=== PATIENT | male | born 1950 | race Caucasian/White ===

== ENCOUNTER 2019-01-06 09:57 | Inpatient (IN) | payer MEDICARE, OTHER ==
[~2019-01-06] VITALS: Ht 165.1 cm; Wt 82.3 kg
--- NOTE | 2019-01-06 10:10 | NUR ---
PRECIOUS LEGER IS A FRIEN OF PT
[2019-01-06] MEDS ORDERED: normal saline 1000ml 1,000 ML IV ONE (10:16)
[2019-01-06 10:27] LABS: BASOPHILS # (AUTO) 0.1 X10'3 (0-0.2); BASOPHILS % (AUTO) 1.3 % (0-1); EOSINOPHILS # (AUTO) 0.3 X10'3 (0-0.9); EOSINOPHILS % (AUTO) 3.3 % (0-6); HEMATOCRIT 40.8 % (42.0-52.0); HEMOGLOBIN 14.5 g/dl (14.0-17.9); LYMPHOCYTES # (AUTO) 1.9 X10'3 (1.1-4.8); LYMPHOCYTES % (AUTO) 22.9 % (21-51); MEAN CORPUSCULAR HEMOGLOBIN 31.5 PG (27.0-31.0); MEAN CORPUSCULAR HGB CONC 35.6 g/dL (33.0-36.5); MEAN CORPUSCULAR VOLUME 88.4 FL (78-98); MEAN PLATELET VOLUME 5.9 FL (7.4-10.4); MONOCYTES # (AUTO) 0.6 X10'3 (0-0.9); MONOCYTES % (AUTO) 7.6 % (2-12); NEUTROPHILS # (AUTO) 5.4 X10'3 (1.8-7.7); NEUTROPHILS % (AUTO) 64.9 % (42-75); PLATELET COUNT 515 X10'3 (140-440); RED BLOOD COUNT 4.62 X10'6 (4.70-6.10); WHITE BLOOD COUNT 8.3 X10'3 (4.5-11.0)
[2019-01-06 10:45] LABS: ALANINE AMINOTRANSFERASE 18 U/L (12-78); ALBUMIN 3.1 G/DL (3.4-5.0); ALBUMIN/GLOBULIN RATIO 0.9 (1.1-1.5); ALKALINE PHOSPHATASE 49 IU/L (46-116); ANION GAP 14 (8-16); ASPARTATE AMINO TRANSFERASE 18 U/L (10-37); BLOOD UREA NITROGEN 17 MG/DL (7-18); BUN/CREATININE RATIO 9.2 (5.4-32.0); CALCIUM 9.1 MG/DL (8.5-10.1); CHLORIDE 97 MMOL/L (99-107); CREATININE 1.84 MG/DL (0.60-1.10); GLUCOSE 112 MG/DL (70-104); POTASSIUM 3.5 MMOL/L (3.5-5.1); SODIUM 135 MMOL/L (135-145); TOTAL CARBON DIOXIDE 24.3 MMOL/L (24-32); TOTAL PROTEIN 6.6 G/DL (6.4-8.2); eGFR 37 ML/MIN
[2019-01-06] MEDS ORDERED: metoclopramide 5 mg/ml inj IV ONE (11:10)
--- NOTE | 2019-01-06 11:13 | NUR ---
[facility] [id number] FAX [phone] HX OF MELAN[place]
--- NOTE | 2019-01-06 12:59 | NUR ---
Christina klein in EDM - 01/06/19 at 1301 by GIO Pt's IV discontinued in preparation for discharge. Primary nurse stated the patient is possibly going to be admitted. Stopped with the discharge process for clarification of discharge versus admission.
--- NOTE | 2019-01-06 13:02 | NUR ---
Pt's IV discontinued in preparation for discharge. Primary nurse stated the patient is possibly going to be admitted. Stopped with the discharge process for clarification of discharge versus admission.
[2019-01-06 14:18] LABS: C DIFF ANTIGEN SEE COMMENTS (NEGATIVE); C DIFF SPECIMEN=DIARRHEA? ACCEPTABLE; C DIFFICILE TOXINS A&B NEGATIVE (Neg)
[2019-01-06] MEDS ORDERED: HYDROCORTISONE 5 MG PO (14:29)
[2019-01-06] MEDS ORDERED: LEVO25TA7 PO (14:29)
[2019-01-06] MEDS ORDERED: [UNRECOGNIZED DRUG - OTHER] PO (14:33)
[2019-01-06] MEDS ORDERED: morphine 2 MG/ML inj. syringe IV PRN ×2 (14:55)
[2019-01-06] MEDS ORDERED: magnesium hydroxide 30ml (MOM) UD suspension PO PRN (14:55)
[2019-01-06] MEDS ORDERED: ondansetron/PF 4mg/2ml inj IV PRN (14:55)
[2019-01-06] MEDS ORDERED: HYDROcodone/acetaminophen 5mg/325mg tablet PO PRN (14:55)
[2019-01-06] MEDS ORDERED: acetaminophen 325mg tablet PO PRN ×2 (14:55)
[2019-01-06] MEDS ORDERED: mag hydrox/Alum hydrox/simeth 30ml oral suspension PO PRN (14:55)
[2019-01-06 15:21] LABS: C DIFF TOXIN (LAMP) POSITIVE (NEG)
[2019-01-06] MEDS: normal saline 1000ml 1,000 ML IV SCH ×2 (16:19→23:59)
--- NOTE | 2019-01-06 18:54 | NUR ---
Pt is being transported to the floor, floor nursing staff notified of the patient's belongings with him.
--- NOTE | 2019-01-06 19:13 | NUR ---
oriented to room 4007. call light in reach. skin check complete. belongings updated. eating dinner from leftover warm tray. educated that need a UA. urinal in reach and pt will use call light when finished
[2019-01-06 19:30] VITALS: BP 92/56
[2019-01-06] MEDS: vancomycin 125mg/5ml ORAL solution 5ml UD bottle PO SCH (20:43)
[2019-01-06 21:06] LABS: CLARITY,URINE SLIGHTLY CLOUDY (Clear); COLOR,URINE YELLOW (Yellow); GLUCOSE, URINE NEGATIVE (Neg); KETONES,URINE 40 mg/dl (Neg); LEUKOCYTE ESTERASE ,URINE NEGATIVE (Neg); NITRITES, URINE NEGATIVE (Neg); OCCULT BLOOD,URINE NEGATIVE (Neg); PH,URINE 5.5 (4.8-8.0); PROTEIN,URINE 30 mg/dl (Neg); UROBILINOGEN,URINE 0.2 E.U/dL (0.2-1.0)
[2019-01-06 21:08] LABS: UA COLLECTION TYPE VOIDED
[2019-01-06 21:13] LABS: RBC,URINE NONE SEEN /HPF (0-2); WBC,URINE 0-4 /HPF (0-4)
[2019-01-06 21:14] LABS: BACTERIA,URINE 1+ /HPF (Neg); MUCUS STRANDS MANY /LPF (Neg); SQUAMOUS EPITHELIAL CELL,UR FEW /LPF (FEW)
[2019-01-06 22:00] VITALS: BP 107/56
[2019-01-07] MEDS: vancomycin 125mg/5ml ORAL solution 5ml UD bottle PO SCH ×4 (01:59→19:55)
--- NOTE | 2019-01-07 05:53 | NUR ---
reported to days. noted oral vanco routine and need for discharge planning for safe home discharge (and cleaning)
[2019-01-07 06:00] VITALS: BP 117/72
--- NOTE | 2019-01-07 06:32 | NUR ---
Patient in room [facility]TH[facility] 4007. I have received report from Mahad and had the opportunity to ask questions and assume patient care.
[2019-01-07] MEDS: hydrocortisone 10mg tablet PO SCH ×2 (07:31→17:14)
[2019-01-07] MEDS: levoTHYROXINE 25mcg tablet PO SCH (07:31)
[2019-01-07 08:00] VITALS: BP_SYST 102; BP_SYST 112; BP_SYST 96; BP_DIAS 58; BP_DIAS 64; BP_DIAS 69
[2019-01-07] MEDS: normal saline 1000ml 1,000 ML IV SCH ×2 (10:18→19:55)
--- NOTE | 2019-01-07 13:47 | NUR ---
Able to obtain scale weight per request from dietary. Pt's weighs 82.3 kg
--- NOTE | 2019-01-07 13:55 | NUR ---
Malnutrition Consult: Pt admitted for diarrhea and nausea r/t C. diff. Pt diagnosed with C. diff on 12/25 at [facility] and has been having 6-8 BM per day for the past 3 weeks. Pt has DB r/t dehydration r/t colitis per MD, currently on IV fluids. No edema or wounds, however pt has mild weakness r/t colitis. Initial PO intake at dinner 01/06 25% PO increased to 100% at breakfast this morning. LBM 01/07. Pt does not trigger for malnutrition at this time. Will continue to monitor. to follow. Addendum: 01/07/19 at 1355 by Wing Stevenson ALVAREZ Amended: Links added. Addendum: 01/07/19 at [address] ANTONIO Mckeon
[2019-01-07 14:00] VITALS: BP 111/68
--- NOTE | 2019-01-07 16:11 | NUR ---
F/u: Pt scaled wt 82.3kg per RN; no significant wt loss hx present. Addendum: 01/07/19 at [address] Amended: Links added.
[2019-01-07 18:00] VITALS: BP 140/76
--- NOTE | 2019-01-07 18:06 | NUR ---
Problems reprioritized. Patient report given, questions answered & plan of care reviewed with Mahad.
[2019-01-07] MEDS: lactobacillus rhamnosus 10,000 MMU CELLS/CAPSULE PO SCH (19:55)
[2019-01-07 22:00] VITALS: BP_SYST 115; BP_SYST 118; BP_SYST 124; BP_DIAS 65; BP_DIAS 69; BP_DIAS 78
[2019-01-08] VITALS (7 sets, daily range): BP systolic 107–132; BP diastolic 62–79
[2019-01-08] MEDS: vancomycin 125mg/5ml ORAL solution 5ml UD bottle PO SCH ×4 (02:41→21:28)
[2019-01-08] MEDS: normal saline 1000ml 1,000 ML IV SCH ×2 (06:29→15:00)
--- NOTE | 2019-01-08 06:30 | NUR ---
reported to days. noted pt resting and anxious to go home
--- NOTE | 2019-01-08 06:35 | NUR ---
Patient in room [facility]TH[facility] 4007. I have received report from Jo-Ann SMALLS and had the opportunity to ask questions and assume patient care. Addendum: 01/08/19 at 0636 by Latoya Bocanegra RN From Mahad SMALLS
[2019-01-08] MEDS: lactobacillus rhamnosus 10,000 MMU CELLS/CAPSULE PO SCH ×2 (07:08→21:28)
[2019-01-08] MEDS: levoTHYROXINE 25mcg tablet PO SCH (07:08)
[2019-01-08] MEDS: hydrocortisone 10mg tablet PO SCH ×2 (11:06→18:37)
--- NOTE | 2019-01-08 18:39 | NUR ---
Patient report given to Andrew SMALLS
[2019-01-09] MEDS: normal saline 1000ml 1,000 ML IV SCH ×3 (00:38→20:01)
[2019-01-09] MEDS: vancomycin 125mg/5ml ORAL solution 5ml UD bottle PO SCH ×4 (02:12→20:01)
[2019-01-09 06:15] LABS: ALBUMIN 2.4 G/DL (3.4-5.0); ANION GAP 10 (8-16); BLOOD UREA NITROGEN 10 MG/DL (7-18); BUN/CREATININE RATIO 8.8 (5.4-32.0); CHLORIDE 108 MMOL/L (99-107); CREATININE 1.13 MG/DL (0.60-1.10); GLUCOSE 84 MG/DL (70-104); POTASSIUM 3.6 MMOL/L (3.5-5.1); SODIUM 142 MMOL/L (135-145); TOTAL CARBON DIOXIDE 24.2 MMOL/L (24-32); eGFR 64 ML/MIN
--- NOTE | 2019-01-09 06:30 | NUR ---
Patient in room [facility]TH[facility] 4007. I have received report from Andrew SMALLS and had the opportunity to ask questions and assume patient care.
--- NOTE | 2019-01-09 06:31 | NUR ---
Patient refused morning vitals, I will ask the patient again soon if I can take his vitals.
[2019-01-09] MEDS: hydrocortisone 10mg tablet PO SCH ×2 (07:32→16:50)
[2019-01-09] MEDS: lactobacillus rhamnosus 10,000 MMU CELLS/CAPSULE PO SCH ×2 (07:33→20:01)
[2019-01-09] MEDS: levoTHYROXINE 25mcg tablet PO SCH (07:33)
[2019-01-09 07:38] VITALS: BP 147/80
[2019-01-09 08:00] VITALS: BP_SYST 125; BP_SYST 127; BP_SYST 129; BP_DIAS 71; BP_DIAS 77; BP_DIAS 82
[2019-01-09 10:00] VITALS: BP 127/77
[2019-01-09 18:00] VITALS: BP 137/69
--- NOTE | 2019-01-09 18:04 | NUR ---
patient report given to Genoveva SMALLS
--- NOTE | 2019-01-09 18:30 | NUR ---
Patient in room [facility]TH[facility] 4007. I have received report from Kera SMALLS and had the opportunity to ask questions and assume patient care.
[2019-01-09 20:59] VITALS: BP_SYST 115; BP_SYST 119; BP_SYST 138; BP_DIAS 61; BP_DIAS 70
[2019-01-09 22:00] VITALS: BP 138/70
[2019-01-10] MEDS: vancomycin 125mg/5ml ORAL solution 5ml UD bottle PO SCH ×2 (01:47→08:34)
[2019-01-10] MEDS: normal saline 1000ml 1,000 ML IV SCH (05:18)
[2019-01-10 06:00] VITALS: BP 145/81
--- NOTE | 2019-01-10 06:33 | NUR ---
Problems reprioritized. Patient report given, questions answered & plan of care reviewed with Verónica SMALLS.
--- NOTE | 2019-01-10 06:35 | NUR ---
Patient in room [facility]TH[facility] 4007. I have received report from SERINA Tomas and had the opportunity to ask questions and assume patient care. Addendum: 01/10/19 at 0638 by Verónica Florez RN Amended: Links added.
[2019-01-10 08:00] VITALS: BP_SYST 123; BP_SYST 126; BP_DIAS 70; BP_DIAS 71; BP_DIAS 73
[2019-01-10] MEDS: hydrocortisone 10mg tablet PO SCH (08:35)
[2019-01-10] MEDS: levoTHYROXINE 25mcg tablet PO SCH (08:35)
[2019-01-10] MEDS: lactobacillus rhamnosus 10,000 MMU CELLS/CAPSULE PO SCH (08:35)
[2019-01-10 10:00] VITALS: BP 126/81
== END 2019-01-10 11:10 | DRG 372 ==
LOC: ER 09:57 → ED HOLD 14:51 → ORTHO 4S 18:51 → OBSVTOIN 01-07 09:30
PROVIDERS: ADMIT Internal Medicine; ATTEND Internal Medicine
DX: A04.72 Enterocolitis due to Clostridium difficile, not specified as recurrent (principal); N17.9 Acute kidney failure, unspecified; E86.0 Dehydration; E03.9 Hypothyroidism, unspecified; Z85.820 Personal history of malignant melanoma of skin; Z80.9 Family history of malignant neoplasm, unspecified
CPT/HCPCS: 36415; 80048; 80053; 81001; 83880; 84443; 85025; 87045; 87046; 87081; 87324; 87449; 87493; 96361; 96374; 97110; 97116; 97161; 97530; 99285; G0378; J2765; J7030